=== PATIENT | female | born 1990 ===

== ENCOUNTER 2025-05-14 01:27 | Emergency (ER) | payer BC, OTHER, SELFPAY ==
[~2025-05-14] VITALS: Ht 172.7 cm; Wt 80.6 kg
[2025-05-14 01:33] VITALS: BP 134/89; TEMP 97.7; O2SAT 99
== END 2025-05-14 02:05 | disposition left against medical advice (07) ==
LOC: M ED 01:27
DX: Z53.21 Procedure and treatment not carried out due to patient leaving prior to being seen by health care provider (principal)